=== PATIENT | male | born 1965 | race Caucasian/White ===

== ENCOUNTER 2018-08-30 13:37 | Day surgery (SDC) | payer OTHER ==
[2012-02-24 06:39] VITALS: BP 104/74
[2018-08-30] MEDS ORDERED: DIPRIVAN 200 MG/20 ML IV ONE (14:21)
[2018-08-30] MEDS ORDERED: Ketamine HCl 50 MG/ML ONE (14:21)
[2018-08-30] MEDS ORDERED: Lactated Ringers 1,000 ML IV ONE (14:33)
--- NOTE | 2018-08-30 16:40 | XRAY ---
Indication: Left L4-L5 and L5-S1 transforaminal GABRIELLE. Intraoperative fluoroscopy was provided for 17 seconds. 2 digital spot images submitted for interpretation demonstrates posterior needle tips projecting over the expected left L4 and L5 nerve roots. Small amount of contrast injected for needle tip placement. Correlate with intraoperative findings/report.
--- NOTE | 2018-08-30 16:46 | XRAY ---
17 seconds of fluoroscopy was used in surgery for left L4-L5 and L5-S1 transforaminal GABRIELLE.
== END 2018-08-30 14:55 | disposition home or self-care (01) ==
LOC: SDC-PAIN 13:37
PROVIDERS: ATTEND Psychiatry & Neurology Pain Medicine
DX: M54.16 Radiculopathy, lumbar region (principal); F41.8 Other specified anxiety disorders; R51 Headache
CPT/HCPCS: 64483; 64484; 72020; 77003; J2704; Q9966

== ENCOUNTER 2018-10-11 09:54 | Day surgery (SDC) | payer OTHER ==
[2012-02-24 06:39] VITALS: BP 104/74
[2018-10-11] MEDS ORDERED: Depo-Medrol 40 MG/ML IM ONE (09:55)
[2018-10-11] MEDS ORDERED: Xylocaine-Mpf 2% 5 Ml Vial IJ ONE (09:55)
[2018-10-11] MEDS ORDERED: Ketamine HCl 50 MG/ML ONE ×2 (11:27→12:34)
[2018-10-11] MEDS ORDERED: DIPRIVAN 200 MG/20 ML IV ONE ×2 (11:27→12:34)
--- NOTE | 2018-10-11 15:17 | XRAY ---
8 seconds fluoroscopy time in surgery for bilateral L3-S1 MBB.
[2018-10-11] MEDS ORDERED: Lactated Ringers 1,000 ML IV ONE (16:45)
--- NOTE | 2018-10-13 10:25 | XRAY ---
Indication: Bilateral L3-S1 MBB. Intraoperative fluoroscopy was provided for 8 seconds. Single digital spot image submitted for interpretation demonstrates posterior needle tips projecting over the expected course of the left and right L4-S1 nerve roots. Correlate with intraoperative findings/report.
== END 2018-10-11 13:07 | disposition home or self-care (01) ==
LOC: SDC-PAIN 09:54
PROVIDERS: ATTEND Psychiatry & Neurology Pain Medicine
DX: M47.816 Spondylosis without myelopathy or radiculopathy, lumbar region (principal); F41.8 Other specified anxiety disorders; Z79.899 Other long term (current) drug therapy
CPT/HCPCS: 64493; 64494; 72020; 77002; J1030; J2704

== ENCOUNTER 2018-11-08 09:14 | Day surgery (SDC) | payer OTHER ==
[2012-02-24 06:39] VITALS: BP 104/74
[2018-11-08] MEDS ORDERED: Depo-Medrol 40 MG/ML IM ONE (09:15)
[2018-11-08] MEDS ORDERED: Marcaine 0.5% SDV 10 ML IJ ONE (09:15)
[2018-11-08] MEDS ORDERED: DIPRIVAN 200 MG/20 ML IV ONE (11:03)
[2018-11-08] MEDS ORDERED: Ketamine HCl 50 MG/ML ONE (11:04)
--- NOTE | 2018-11-08 12:59 | XRAY ---
Indication: Bilateral L4-S1 MBB. Intraoperative fluoroscopy was provided for 5 seconds. Single digital spot image submitted for interpretation demonstrates posterior needle tips projecting over the expected course of the left and right L4-S1 nerve roots. Correlate with intraoperative findings/report.
--- NOTE | 2018-11-08 13:14 | XRAY ---
5 seconds fluoroscopy time in surgery for bilateral L4-S1 MBB.
[2018-11-08] MEDS ORDERED: Lactated Ringers 1,000 ML IV ONE (13:21)
== END 2018-11-08 11:20 | disposition home or self-care (01) ==
LOC: SDC-PAIN 09:14
PROVIDERS: ATTEND Psychiatry & Neurology Pain Medicine
DX: M47.816 Spondylosis without myelopathy or radiculopathy, lumbar region (principal); F41.8 Other specified anxiety disorders; M41.9 Scoliosis, unspecified; Z79.899 Other long term (current) drug therapy
CPT/HCPCS: 64493; 64494; 72020; 77002; J1030; J2704

== ENCOUNTER 2018-12-13 11:53 | Day surgery (SDC) | payer OTHER ==
[2012-02-24 06:39] VITALS: BP 104/74
[2018-12-13] MEDS ORDERED: Xylocaine 1% Vial 30 ML PF IJ ONE (11:54)
[2018-12-13] MEDS ORDERED: Depo-Medrol 40 MG/ML IM ONE (11:54)
[2018-12-13] MEDS ORDERED: Marcaine 0.5% SDV 10 ML IJ ONE (11:54)
[2018-12-13] MEDS ORDERED: DIPRIVAN 200 MG/20 ML IV ONE (13:32)
[2018-12-13] MEDS ORDERED: Ketamine HCl 50 MG/ML ONE (13:32)
[2018-12-13] MEDS ORDERED: Lactated Ringers 1,000 ML IV ONE (14:49)
--- NOTE | 2018-12-13 15:04 | XRAY ---
Indication: Right L4-S1 RFA. Intraoperative fluoroscopy was provided for 19 seconds. 3 digital spot images submitted for interpretation demonstrates posterior needle tips projecting over the expected course of the right L4-S1 nerve roots. Correlate with intraoperative findings/report.
--- NOTE | 2018-12-13 16:25 | XRAY ---
19 seconds of fluoroscopy was used in surgery for a right L4-L5, L5-S1 RFA.
== END 2018-12-13 14:12 | disposition home or self-care (01) ==
LOC: SDC-PAIN 11:53
PROVIDERS: ATTEND Psychiatry & Neurology Pain Medicine
DX: M47.816 Spondylosis without myelopathy or radiculopathy, lumbar region (principal); F41.8 Other specified anxiety disorders; R51 Headache; M41.9 Scoliosis, unspecified; Z79.899 Other long term (current) drug therapy
CPT/HCPCS: 64635; 64636; 72100; 77002; J1030; J2001; J2704

== ENCOUNTER 2019-02-07 13:34 | Day surgery (SDC) | payer OTHER ==
[2012-02-24 06:39] VITALS: BP 104/74
[2019-02-07] MEDS ORDERED: Xylocaine 1% Vial 30 ML PF IJ ONE (13:35)
[2019-02-07] MEDS ORDERED: Depo-Medrol 40 MG/ML IM ONE (13:35)
[2019-02-07] MEDS ORDERED: Marcaine 0.5% SDV 10 ML IJ ONE (13:35)
[2019-02-07] MEDS ORDERED: Lactated Ringers 1,000 ML IV ONE (15:20)
[2019-02-07] MEDS ORDERED: DIPRIVAN 200 MG/20 ML IV ONE (15:47)
[2019-02-07] MEDS ORDERED: Ketamine HCl 50 MG/ML ONE (15:48)
--- NOTE | 2019-02-07 22:41 | XRAY ---
Indication: Left L4-S1 RFA. Intraoperative fluoroscopy was provided for 13 seconds. 2 digital spot images submitted for interpretation demonstrates posterior needle tips projecting over the expected course of the left L4-S1 nerve roots. Correlate with intraoperative findings/report.
--- NOTE | 2019-02-07 23:01 | XRAY ---
13 seconds fluoroscopy time in surgery for left L4-S1 RFA.
== END 2019-02-07 16:23 | disposition home or self-care (01) ==
LOC: SDC-PAIN 13:34
PROVIDERS: ATTEND Psychiatry & Neurology Pain Medicine
DX: M47.816 Spondylosis without myelopathy or radiculopathy, lumbar region (principal); F41.8 Other specified anxiety disorders; R51 Headache; M41.9 Scoliosis, unspecified; Z79.899 Other long term (current) drug therapy
CPT/HCPCS: 64520; 72100; 77002; J1030; J2001; J2704

== ENCOUNTER 2019-03-28 11:30 | Day surgery (SDC) | payer OTHER ==
[2012-02-24 06:39] VITALS: BP 104/74
[2019-03-28] MEDS ORDERED: Depo-Medrol 40 MG/ML IM ONE (11:31)
[2019-03-28] MEDS ORDERED: Marcaine 0.5% SDV 10 ML IJ ONE (11:31)
[2019-03-28] MEDS ORDERED: Ketamine HCl 50 MG/ML ONE (13:58)
[2019-03-28] MEDS ORDERED: DIPRIVAN 200 MG/20 ML IV ONE (14:09)
--- NOTE | 2019-03-28 14:59 | XRAY ---
Indication: Left hip injection. Intraoperative fluoroscopy was provided for 8 seconds. Single digital spot image submitted for interpretation demonstrates needle tip projecting just lateral to the left femur neck. Small amount of contrast injected for needle tip placement. Correlate with intraoperative findings/report.
[2019-03-28] MEDS ORDERED: Lactated Ringers 1,000 ML IV ONE (15:31)
--- NOTE | 2019-03-28 16:32 | XRAY ---
8 seconds of fluoroscopy was used in surgery for a left intra-articular hip injection.
== END 2019-03-28 14:22 | disposition home or self-care (01) ==
LOC: SDC-PAIN 11:30
PROVIDERS: ATTEND Psychiatry & Neurology Pain Medicine
DX: M16.12 Unilateral primary osteoarthritis, left hip (principal); R51 Headache; F41.8 Other specified anxiety disorders; M41.9 Scoliosis, unspecified; Z79.899 Other long term (current) drug therapy
CPT/HCPCS: 20610; 73501; 77002; J1030; J2704; Q9966

== ENCOUNTER 2020-07-23 13:06 | Day surgery (SDC) | payer MEDICAID ==
[2012-02-24 06:39] VITALS: BP 104/74
[2020-07-23] MEDS ORDERED: Depo-Medrol 40 MG/ML IM ONE (13:07)
[2020-07-23] MEDS ORDERED: BUPIVACAINE 0.5% VIAL IJ ONE (13:07)
[2020-07-23] MEDS ORDERED: DIPRIVAN 200 MG/20 ML IV ONE (14:48)
[2020-07-23] MEDS ORDERED: Lactated Ringers 1,000 ML IV ONE (16:25)
--- NOTE | 2020-07-23 17:45 | XRAY ---
20 seconds of fluoroscopy was used in surgery for a left intra-articular hip injection and a left greater trochanteric bursa hip injection.
== END 2020-07-23 15:19 | disposition home or self-care (01) ==
LOC: SDC-PAIN 13:06
PROVIDERS: ATTEND Psychiatry & Neurology Pain Medicine
DX: M16.12 Unilateral primary osteoarthritis, left hip (principal); M41.9 Scoliosis, unspecified; R51.9 Headache, unspecified; F41.8 Other specified anxiety disorders; Z79.899 Other long term (current) drug therapy
CPT/HCPCS: 20610; 73502; 77002; J1030; J2704; Q9966

== ENCOUNTER 2023-01-12 14:03 | Day surgery (SDC) | payer MEDICARE ==
[2012-02-24 06:39] VITALS: BP 104/74
[2023-01-12] MEDS ORDERED: Decadron 4 MG INJ IV ONE (14:04)
[2023-01-12] MEDS ORDERED: LIDOCAINE HCL 1% 50 MG/5 ML VL PF IJ ONE (14:04)
[2023-01-12] MEDS ORDERED: Depo-Medrol 40 MG/ML IM ONE (14:04)
[2023-01-12] MEDS ORDERED: Sodium Chloride 0.9(Preservative Free) 10 ML IJ ONE (14:04)
[2023-01-12] MEDS ORDERED: DIPRIVAN 200 MG/20 ML IV ONE (17:15)
[2023-01-12] MEDS ORDERED: Lactated Ringers 1,000 ML IV ONE (18:38)
--- NOTE | 2023-01-12 19:28 | XRAY ---
Indication: Left L4-S1 transforaminal GABRIELLE. Intraoperative fluoroscopy provided for 21 seconds. 5 digital spot image submitted for interpretation demonstrates posterior needle tips projecting over the expected left L4 and L5 nerve roots. Small amount of contrast injected for needle tip placement. Correlate with intraoperative findings/report.
--- NOTE | 2023-01-12 19:29 | XRAY ---
Indication: Left piriformis. Intraoperative fluoroscopy provided for 8 seconds. Single digital spot image submitted for interpretation demonstrates posterior needle tip projecting over the left piriformis. Small amount of contrast injected for needle tip placement. Correlate with intraoperative findings/report.
--- NOTE | 2023-01-13 09:43 | XRAY ---
21 seconds of fluoroscopy was used in surgery for a left L4-S1 transforaminal GABRIELLE.
--- NOTE | 2023-01-13 09:43 | XRAY ---
8 seconds of fluoroscopy was used in surgery for a left piriformis injection.
== END 2023-01-12 17:44 | disposition home or self-care (01) ==
LOC: SDC-PAIN 14:03
PROVIDERS: ATTEND Psychiatry & Neurology Pain Medicine
DX: M54.16 Radiculopathy, lumbar region (principal); M79.18 Myalgia, other site
CPT/HCPCS: 20552; 64483; 64484; 72100; 72170; 77002; 77003; J1030; J1100; J2001; J2704; Q9966

== ENCOUNTER → 2023-03-02 | Day surgery (SDC) | payer MEDICARE ==
[2012-02-24 06:39] VITALS: BP 104/74
[~2023-03-02] MED LIST: BUPIVACAINE 0.5% VIAL IJ ONE; DIPRIVAN 200 MG/20 ML IV ONE; Depo-Medrol 40 MG/ML IM ONE; Lactated Ringers 1,000 ML IV ONE
--- NOTE | 2023-03-02 15:20 | XRAY ---
Indication: Left hip and greater trochanter bursa injection. Intraoperative fluoroscopy provided for 17 seconds. 3 digital spot images submitted for interpretation demonstrates needle tip projecting lateral to left femur neck. Second needle tip lateral to greater trochanter. Small amount of contrast injected for both needle tip placement. Correlate with intraoperative findings/report.
--- NOTE | 2023-03-02 16:57 | XRAY ---
17 seconds of fluoroscopy was used in surgery for a left intra-articular hip and greater trochanteric bursa injection.
== END ==
LOC: SDC-PAIN 12:46
PROVIDERS: ATTEND Psychiatry & Neurology Pain Medicine
DX: M16.12 Unilateral primary osteoarthritis, left hip (principal)
CPT/HCPCS: 20610; 73502; 77002; J1030; J2704; Q9966